=== PATIENT | male | born 1955 | race Caucasian/White ===

== ENCOUNTER 2016-12-10 12:48 | Emergency (ER) | payer OTHER ==
[~2016-12-10] VITALS: Ht 180.3 cm; Wt 84.1 kg
[~2016-12-10 12:48] MED LIST: ATOR20TA PO; CARI350T PO; EPIN0.3P2 IJ; IBUP200C PO; ZLP10T PO
[2016-12-10 13:09] VITALS: BP 115/64; PULSE 81; RESP 18; O2SAT 95
--- NOTE | 2016-12-10 13:37 | ED.REPORT ---
HPI-Seizure Date of Service Dec 10, 2016 ED Provider: Dalton Nation MD A 61 year old male with a history of previous rotator cuff injury presents to the ED via EMS following a new-onset seizure that occurred just prior to arrival. He was reportedly found in the shower by his spouse who helped lower him to the ground. Spouse describes rigid tremors in his upper extremities, apneic breathing and inability to speak during the episode. Seizure activity lasted approx. 1 minute. He bit his tongue during the episode and had post- seizure confusion. EMS report that the patient has been in a post-ictal state since arrival at the scene. Patient has been experiencing episodes of anomic aphasia for the past week. Patient is currently endorsing right shoulder pain and pain on his tongue. Patient admits to daily EtOH use but denies any previous periods of withdrawal that require intervention or admission. Last EtOH consumption was 24 hours ago. Patient was asymptomatic prior to today's episode. Nursing Notes Stated Complaint: SEIZURE Chief Complaint: Seizure Nursing Notes Reviewed: Yes (Nubimetrics not reconciled) Allergies: Coded Allergies: Honey Bee (Verified Allergy, Mild, 04/22/15) Scheduled Atorvastatin (Lipitor) 20 Mg Tablet 20 MG PO DAILY Carisoprodol (Soma) 350 Mg Tablet 350 MG PO q8hrs Phenytoin Sodium Extended (Phenytoin Sodium Extended) 300 Mg Capsule 300 MG PO HS Scheduled PRN Epinephrine (Epipen 2-French) 0.3 Mg/0.3 Ml Auto.injct 0.3 MG IJ DIRECTED PRN PRN bee stings Hydrocodone-Acetaminophen 5-325 mg (Hydrocodone-Acetaminophen 5-325 mg) 1 Each Tablet 1-2 TABLET PO Q4H PRN PRN For Pain Ibuprofen (Ibuprofen) 200 Mg Capsule 200 MG PO QID PRN PRN For Pain Zolpidem (Ambien) 10 Mg Tablet 10 MG PO HS PRN PRN For Insomnia General Time Seen by Provider: 13:38 Chief Complaint Chief Complaint: Seizure, generalized Seizure Anatomic Location: Arm right Hx Obtained From: Patient, Spouse, EMS Arrived By: Ambulance Onset Occurred: Just prior to arrival Symptom Duration: 1 - 15 minutes (1 min) Progression Since Onset: Gradually improving Location: : Arm right Quality: Painful Severity: Current: Moderate Severity: Maximum: Moderate Associated with: Reports: Disoriented post-seizure, Tongue biting Pertinent Negative: Pt denies other symptoms Recent Healthcare: No recent doctor visit, No recent hospitalization Risk-Seizure NIH Stroke Scale Level of Consciousness: Alert and responsive (0) Ask Month & Age: Both questions right (0) Open/Close Eyes/Hand Buff Wheel Fabricator: Performs both tasks (0) Horizontal EO Movements: None (0) Visual Sifuentes: No visual loss (0) Facial Palsy: Normal symmetry (0) Right Arm Motor Drift (10s): Untestable (0) (Due to pain) Left Arm Motor Drift (10s): No drift 10 sec (0) Right Leg Motor Drift (5s): No drift 5 sec (0) Left Leg Motor Drift (5s): No drift 5 sec (0) Limb Ataxia FNF/Heel-Dupree: No ataxia (0) Sensation (Arms/Legs/Face): No sensory loss (0) Language Aphasia: No aphasia, normal (0) Dysarthria: No dysarthria, normal (0) Extinction/Inattention: No exctinct/inattent (0) NIHSS Score: 0 Time NIHSS Performed: 13:57 Past Medical History Past Medical History Healthy; takes ibuprofen on daily basis Past Surgical History Colonoscopy Melanoma Discectomy of back Rotator Cuff repair Smoking History Former Smoker, Never Smoker Social History Alcohol Use: 1-3 per day Drug Use: Denies drug use Other Social History: Good social support, Local resident Ambulatory Status Independent Review of Systems + tongue biting + apneic breathing + anomic aphasia Constitutional: Reports: Fatigue Musculoskeletal: Reports: Extremity pain (Right arm) Neurologic: Reports: Confusion, Seizure, Shaking, Unable to speak Complete sys rev & neg: except as marked. Physical Exam Initial Vital Signs Vital Signs (First) Date Time Temp Pulse Resp B/P Pulse Ox O2 Delivery O2 Flow Rate FiO2 12/10/16 13:09 36.6 81 18 115/64 95 Room Air Initial VS: Reviewed, Vital signs normal Head / Eyes: Atraumatic, Normocephalic, PERRL Skin: Warm, Dry, No cyanosis Psychiatric: Mood/affect normal, Behavior normal, Normal thought content General/Constitutional: Awake, Alert, No acute distress Neck: Atraumatic, Supple Respiratory / Chest: Atraumatic, Breath sounds NL, Breath sounds = bilat, No respiratory distress Cardiovascular: Heart rate NL, Regular rhythm, Heart sounds NL Neurologic: Oriented X3, Speech NL, No motor deficits, No sensory deficits, CN II - XII intact, Reflexes equal bilat NEURO: See NIH Stroke Scale in Risk Section Abdomen: Atraumatic, Soft, Non-tender Upper Extremity / MS: Atraumatic, No deformity, Neurologic intact, Vascular intact Right Shoulder: Positive: Tenderness present... UPPER EXTREMITIES: Active ROM intact with associated pain No step off's Intact passive ROM No evidence of posterior dislocation Lower Extremity / Pelvis / MS: Atraumatic, Neurologic intact, Vascular intact Right Leg / Calf: Positive: Tenderness present... (Mild) Left Leg / Calf: Positive: Tenderness present... (Mild) Interpretation & Diagnostics Lab Results Interpretation Result Diagram: 12/10/16 1320 12/10/16 1320 Test 12/10/16 13:20 White Blood Count 36.3th/mm3 (3.8-10.1) Red Blood Count 4.64mil/mm3 (4.40-5.80) Hemoglobin 14.5g/dL (13.8-17.2) Hematocrit 43.8% (41.0-50.0) Mean Corpuscular Volume 94.4fL (81-100) Mean Corpuscular Hemoglobin 31.3pg (27.0-35.0) Mean Corpuscular Hemoglobin Concent 33.1% (32.0-37.0) Red Cell Distribution Width 14.2% (12.3-15.4) Platelet Count 259bil/L (150-400) Neutrophils (%) (Auto) 12% (40-74) Lymphocytes (%) (Auto) 85% (14-46) Monocytes (%) (Auto) 2% (4-12) Eosinophils (%) (Auto) 1% (0-5) Basophils (%) (Auto) 0% (0-3) Sodium Level 136mEq/L (134-144) Potassium Level 4.1mEq/L (3.5-5.2) Chloride Level 95mEq/L (97-108) Carbon Dioxide Level 11mmol/L (18-29) Blood Urea Nitrogen 18mg/dL (8-27) Creatinine 1.26mg/dL (0.76-1.27) Estimat Glomerular Filtration Rate 61mL/min (>59) Glucose Level 138mg/dL (60-99) Calcium Level 9.2mg/dL (8.5-10.1) Total Bilirubin 0.3mg/dL (0.0-1.2) Aspartate Amino Transf (AST/SGOT) 30U/L (0-50) Alanine Aminotransferase (ALT/SGPT) 30U/L (0-44) Alkaline Phosphatase 57U/L (25-160) Total Protein 7.3g/dL (6.4-8.4) Albumin 4.5g/dL (3.4-5.0) Lab Results Interpretation: CBC severe leukocytosis, possibly stress emargination, labor/excavator has ordered a smear review empirically-bulimic DID not specifically identify anything that looked like the last, they simply indicated that given the level of leukocytosis and wanted to pathology to review it. CMP positive metabolic acidosis consistent with recent seizure X-Ray Interpretation Xray Interpretation: IMPRESSION: No acute bony abnormality. Previous surgery with removal of portion of the undersurface of the acromion and distal clavicle. High riding humeral head suggesting chronic rotator cuff disease. Mild degenerative change in the glenohumeral joint. Dictated by: Eric Swann M.D. on 12/10/2016 at 14:46 X-Ray Ordered: Shoulder right Interpretation / Wet Read by: Interpret - Radiologist CT Head Interpretation IMPRESSION: No acute changes are seen intracranially. No abnormality is seen no cause seizure. Minimal atrophy is present. Dictated by: Eric Swann M.D. on 12/10/2016 at 14:26 Study: Head CT no contrast Interpretation / Wet Read by: Interpret - Radiologist Re-Eval/Medical Decision Med Decision/Clinical Course This is a 61-year-old male presents with new onset witnessed seizure by the . The patient did have an episode earlier this week of several minutes of a significant expressive aphasia, but had no other symptoms and that resolved. He is feeling well when he is in the shower and had a witnessed tonic-clonic seizure weight bit his tongue that lasted several minutes was followed by a postictal phase, but is now back to baseline. He feels tired and sore all over. He does have pain in his right shoulder. He does not have any previous history of seizures. He has no recent trauma or infectious symptoms. No medication exposures. He draws drink alcohol fairly frequent, but his never had withdrawal symptoms, and is not currently in withdrawal clinically. Noncontrast head CT is negative. Blood is notable only for leukocytosis. I suspect the event of an expressive aphasia earlier slightly a first-time seizure , so this would mean 2 seizure events in the past week, therefore think it is reasonable to initiate electric therapy and the patient was started on fosphenytoin. I have also obtained x-rays of the right shoulder, negative for dislocation or fracture posterior dislocation. I have time contacted the patient's PCP to facilitate close follow-up to obtain outpatient EEG, MRI, and neurology consultation. Routine precautions reviewed. Source of Hx: Old records Re-Evaluation/Progress #1: Time of Eval: 14:54 Re-Evaluation/Progress Note: Patient is informed of his concerning lab work and scan results. All questions about the current plan are addressed. Re-Evaluation/Progress #2: Time of Eval: 15:17 Patient Status: Condition improved Re-Evaluation/Progress Note: Patient is rechecked. Symptoms have improved upon re-eval. Patient understands and agrees with the plan to discharge with follow up. Consultation : Referral / Consult Name: Jt Bailey MD Consulted With: Primary care physician Call Returned at: 15:10 Primary Montessori Teacher: Will see patient, Agrees with eval, Agrees with plan Note: Discussed patient condition. Will follow up with the patient. Differential Diagnosis: Positive: Seizure, new onset, Seizure, tonic-clonic, Negative: Drug overdose, Encephalitis, Head trauma, Hyperventilation, Hypocalcemia, Hyponatremia, Hypoxemia, Intracranial bleed, Meningitis, Skull fracture Counseled Regarding: Diagnosis, Lab results, Need for follow-up, When/why to return to ED Discharge & Departure Impression: Primary Impression: New onset seizure Additional Impression: Right shoulder injury Encounter type: initial encounter Qualified Code: S49.91XA - Unspecified injury of right shoulder and upper arm, initial encounter Disposition: Home Discharge Condition All VS Reviewed: Yes Condition: Stable Patient Instructions: New-Onset Seizure in Adults (ED) Additional Instructions: 1. A definitive or dangerous cause of your seizure was not identified. However it is likely that today was his second seizure, and the episode of difficulties with her speech earlier this week was a first time seizure. This means that we do recommend going ahead and starting a seizure medicine. 2. Take dilantin (phenytoin) 300mg at bedtime starting tomorrow. 3. Brain CT scan was normal, and your initial blood tests are normal except for an elevated white count. This is common with a stressed demargination, however a routine review of a "blood smear" is pending to make sure there is no other cause - this has been ordered and will take a few days. 4. The next step is following up with Dr. Sterling he will such up for an EEG and an MRI. I have talked to the office. Please call tomorrow and they will get chin in the next few days. 5. [facility] indicates no driving after seizure for at least 6 months, and until cleared by your doctor/neurologist. 6. Return if new or worsening symptoms occur. Referrals: Jt Bailey MD (PCP) Scribe Attestation Portions of this note were transcribed by Shavonne Marmolejo. I, Dr. Nation, personally performed the history, physical exam and medical decision-making; I reviewed and confirmed the accuracy of the information in the transcribed note. Signed by: Shavonne Marmolejo, 12/10/16. copies to: Jt Bailey MD, Matthew F MD Dec 10, 2016 13:37 SHAVONNE MARMOLEJO Dec 10, 2016 13:41
[2016-12-10 13:51] LABS: INR 0.95 ratio
[2016-12-10 14:00] LABS: Mean Corpuscular Hemoglobin 31.3 pg (27.0-35.0); Mean Corpuscular Volume 94.4 fL (81-100); Platelet Count 259 bil/L (150-400)
[2016-12-10] MEDS ORDERED: Ondansetron 2 mg/mL 2 mL Inj IVPUSH ONE (14:05)
[2016-12-10] MEDS: HYDROmorphone 0.5 mg/0.5 mL iSecure Syringe IVPUSH PRN ×2 (14:16→15:32)
--- NOTE | 2016-12-10 14:34 | DRSVH ---
PROCEDURE: CT BRAIN WITHOUT CONTRAST ([id number]) INDICATIONS: New onset sz TECHNIQUE: Noncontrast 4.5 mm thick angled axial sections acquired from the foramen magnum to the vertex, with c oronal reformats. COMPARISON: None. FINDINGS: Image quality: Excellent. CSF spaces: Basal cisterns are patent. No extra-axial fluid collections. The ventricles are symmet abdulaziz in size and shape. Brain: No intracranial bleeds or masses. There is cerebral volume loss for age, with resultant vent ricular and sulcal prominence. There are periventricular and deep white matter chronic small vessel ischemic changes. There is intracranial internal carotid artery atherosclerosis. Skull and face: Calvarium and visualized facial bones appear intact, without suspicious lesions. Sinuses: Visualized sinuses and mastoids are clear. IMPRESSION: No acute changes are seen intracranially. No abnormality is seen no cause seizure. Minima l atrophy is present. Dictated by: Eric Swann M.D. on 12/10/2016 at 14:26 Approved by: Eric Swann M.D. on 12/10/2016 at 14:32
[2016-12-10 14:43] LABS: NEUTROPHILS % (AUTO) 12 % (40-74)
[2016-12-10 14:44] LABS: BASOPHILS % (AUTO) 0 % (0-3); EOSINOPHILS % (AUTO) 1 % (0-5); MONOCYTES % (AUTO) 2 % (4-12)
[2016-12-10] MEDS ORDERED: FOSPHENYTOIN IV ONE (14:45)
[2016-12-10] MEDS ORDERED: MGPE IV ONE (14:45)
[2016-12-10] MEDS ORDERED: SODIUM CHLORIDE 0.9% IV ONE (14:45)
--- NOTE | 2016-12-10 14:49 | DRSVH ---
PROCEDURE: X-RAY RIGHT SHOULDER, MINIMUM TWO VIEWS ([id number]) INDICATIONS: Pain TECHNIQUE: 3 views of the shoulder were acquired. COMPARISON: None. FINDINGS: Bones: No fractures or dislocations. Loss of the undersurface of the acromion and distal clavicle co nsistent with previous surgery. High riding humeral head within the glenoid fossa with marginal osteo phyte formation. Visualized ribs appear intact. Soft tissues: No suspicious soft tissue calcifications. IMPRESSION: No acute bony abnormality. Previous surgery with removal of portion of the undersurface of the acromion and distal clavicle. High riding humeral head suggesting chronic rotator cuff disease. Mild degenerative change in the glenohumeral joint. Dictated by: Eric Swann M.D. on 12/10/2016 at 14:46 Approved by: Eric Swann M.D. on 12/10/2016 at 14:47
[2016-12-10] MEDS ORDERED: PHEN300C4 PO (15:33)
[2016-12-10] MEDS ORDERED: HYDR-4003 PO (15:39)
[2016-12-10 16:44] VITALS: BP 116/64; PULSE 74; RESP 17; O2SAT 97
== END 2016-12-10 16:51 | disposition home or self-care (01) ==
LOC: SED 12:48 → EDUNIT# 12:48 → EDBD 12:48 → SED 16:51
DX: R56.9 Unspecified convulsions (principal); S40.911A Unspecified superficial injury of right shoulder, initial encounter; X58.XXXA Exposure to other specified factors, initial encounter; Y93.E8 Activity, other personal hygiene; Y92.002 Bathroom of unspecified non-institutional (private) residence as the place of occurrence of the external cause; Y99.8 Other external cause status; Z87.891 Personal history of nicotine dependence; Z79.899 Other long term (current) drug therapy; Z91.030 Bee allergy status
CPT/HCPCS: 36415; 70450; 73030; 80053; 85025; 85610; 96361; 96374; 96375; 99285; J1170; J2405; Q2009